=== PATIENT | female | born 2005 | race Two or more races ===

== ENCOUNTER 2023-11-14 19:48 | Emergency (ER) | payer OTHER ==
[~2023-11-14] VITALS: Ht 157.5 cm; Wt 54.5 kg
[2023-11-14 19:55] VITALS: BP 123/71; PULSE 93; RESP 18; TEMP 98.2
[2023-11-14] MEDS ORDERED: birth control PO (20:03)
[2023-11-14] MEDS ORDERED: MIRT-89 PO (20:03)
[2023-11-14] MEDS ORDERED: ATOM10CA4 PO (20:03)
[2023-11-14] MEDS: HYDROCODONE/ACETAMINOPHEN 5-325 MG TABLET PO ONE (22:03)
[2023-11-14] MEDS: PERTUSS(ACELL),DIPH,TET/PF 0.5 ML SYRINGE [ADULT] IM. ONE (22:04)
[2023-11-14] MEDS: BACITRACIN ZINC/POLYMYXIN B 14.2 GM OINTMENT TP ONE (22:04)
[2023-11-14] MEDS ORDERED: BACI14.26 TP (22:20)
== END 2023-11-14 22:52 | disposition home or self-care (01) ==
LOC: EMS 19:49
DX: T23.202A Burn of second degree of left hand, unspecified site, initial encounter (principal); T31.0 Burns involving less than 10% of body surface; F32.A Depression, unspecified; Z88.0 Allergy status to penicillin
CPT/HCPCS: 16000; 90471; 90715; 99283